=== PATIENT | female | born 1955 | race Caucasian/White ===

== ENCOUNTER 2020-03-21 11:31 | Outpatient (REF) | payer MEDICARE, MEDICAID, SELFPAY ==
[2020-03-22 17:39] LABS: COVID-19 RT-PCR Result Not Detected ((See Note))
== END 2020-03-21 11:51 ==
LOC: LBN 11:31
PROVIDERS: Visit Provider Nurse Practitioner Adult Health
DX: Z11.59 Encounter for screening for other viral diseases (principal)
CPT/HCPCS: U0003

== ENCOUNTER 2020-03-28 13:01 | Outpatient (REF) | payer SELFPAY ==
[2020-03-29 11:25] LABS: COVID-19 RT-PCR UVMMC Result Negative (Negative)
== END 2020-03-28 13:21 ==
LOC: LBN 13:01
PROVIDERS: Visit Provider Nurse Practitioner Adult Health
DX: Z03.818 Encounter for observation for suspected exposure to other biological agents ruled out (principal)
CPT/HCPCS: U0003

== ENCOUNTER 2020-04-03 13:56 | Outpatient (REF) | payer MEDICARE, SELFPAY ==
[2020-04-04 19:20] LABS: COVID-19 RT-PCR Result Not Detected ((See Note))
== END 2020-04-03 14:16 ==
LOC: LBN 13:56
PROVIDERS: Visit Provider Nurse Practitioner Adult Health
DX: Z20.828 Contact with and (suspected) exposure to other viral communicable diseases (principal)
CPT/HCPCS: U0003